=== PATIENT | male | born 1985 ===

== ENCOUNTER 2020-04-25 20:56 | Emergency (ER) | payer OTHER ==
[~2020-04-25] VITALS: Ht 175.3 cm; Wt 90.9 kg
[2020-04-25 20:58] VITALS: BP 125/70
[2020-04-25] MEDS ORDERED: METF-960 PO (21:05)
== END 2020-04-25 22:30 | disposition home or self-care (01) ==
LOC: EMS 20:56
DX: S82.831A Other fracture of upper and lower end of right fibula, initial encounter for closed fracture (principal); X50.9XXA Other and unspecified overexertion or strenuous movements or postures, initial encounter; Y93.89 Activity, other specified; Y92.89 Other specified places as the place of occurrence of the external cause; Y99.8 Other external cause status
CPT/HCPCS: 29515